=== PATIENT | male | born 1955 | race Caucasian/White ===

== ENCOUNTER 2020-04-19 12:43 | Emergency (ER) | payer BC ==
[~2020-04-19] VITALS: Ht 175.3 cm; Wt 90.7 kg
--- NOTE | 2020-04-19 12:50 | NUR ---
PT CALLED, IN BATHROOM
[2020-04-19 13:00] VITALS: BP 159/81
--- NOTE | 2020-04-19 13:04 | NUR ---
AMB TO BED 3
--- NOTE | 2020-04-19 13:14 | NUR ---
64 YO MALE CO ABD PAIN SINCE THIS AM. PT DENIES N/V, FEVER. MULIPLE BM THIS AM SMALL BUT EASY TO PASS, NO DIARRHEA. DID NOT TRY ANY MED FOR PAIN. HX- DENIES NKA
[2020-04-19 13:59] LABS: BASOPHILS # (AUTO) 0.1 K/uL (0.00-0.22); BASOPHILS % (AUTO) 1.3 % (0.0-2.0); EOSINOPHILS # (AUTO) 0.2 K/uL (0-0.4); EOSINOPHILS % (AUTO) 1.9 % (0.0-4.0); HEMATOCRIT 46.6 % (36-52); HEMOGLOBIN 15.3 g/dL (12.0-18.0); LYMPHOCYTES # (AUTO) 1.7 K/uL (2.0-11.5); LYMPHOCYTES % (AUTO) 16.8 % (20.5-51.1); MEAN CORPUSCULAR HEMOGLOBIN 31 pg (27-31); MEAN CORPUSCULAR HGB CONC 33 g/dL (33-37); MEAN CORPUSCULAR VOLUME 93.1 fL (80-94); MONOCYTES # (AUTO) 0.5 K/uL (0.8-1.0); MONOCYTES % (AUTO) 5.5 % (1.7-9.3); NEUTROPHILS # (AUTO) 7.4 K/uL (1.8-7.7); NEUTROPHILS % (AUTO) 74.5 % (42.2-75.2); PLATELET COUNT (AUTO) 279 K/uL (140-450); RED CELL DISTRIBUTION WIDTH 13.6 % (11.6-13.7)
[2020-04-19] MEDS ORDERED: DICYCLOMINE HCL LIQUID 20 MG, ALUMINUM HYD/MAG/SIMETHICONE 30 ML, LIDOCAINE VISCOUS 2% ... PO ONE ×3 (14:10)
[2020-04-19] MEDS ORDERED: KETOROLAC 30 MG/ML VIAL IVP ONE (14:10)
[2020-04-19] MEDS ORDERED: NACL 0.9% 1,000 ML IV ONE (14:10)
[2020-04-19 14:17] LABS: ALBUMIN 3.7 g/dL (3.4-5.0); ANION GAP 16.7 (8-16); CARBON DIOXIDE 22.4 mmol/L (21-32); CREATININE 0.9 mg/dL (0.6-1.3); POTASSIUM 4.1 mmol/L (3.5-5.1); TOTAL BILIRUBIN 0.5 mg/dL (0.0-1.0)
[2020-04-19] MEDS ORDERED: hydrOXYzine 50 MG/ML VIAL IM ONE (14:30)
[2020-04-19] MEDS ORDERED: LIDOCAINE VISCOUS 2% 20 ML UDC ONE (14:51)
[2020-04-19] MEDS ORDERED: DICYCLOMINE HCL LIQUID 10 MG/5 ML UDC ONE (14:51)
[2020-04-19] MEDS ORDERED: ALUMINUM HYD/MAG/SIMETHICONE 30 ML UDC ONE (14:51)
[2020-04-19 17:21] VITALS: BP 159/81
--- NOTE | 2020-04-19 17:21 | NUR ---
Patient discharged with v/s stable. Written and verbal after care instructions given and explained. Patient alert, oriented and verbalized understanding of instructions. Ambulatory with steady gait. All questions addressed prior to discharge. ID band removed. Patient advised to follow up with PMD. Rx of MYLANTA, OMEPRAZOLE AND NORCO given. Patient educated on indication of medication including possible reaction and side effects. Opportunity to ask questions provided and answered.
== END 2020-04-19 17:21 | disposition home or self-care (01) ==
LOC: MED 12:43
DX: R10.84 Generalized abdominal pain (principal)
CPT/HCPCS: 36415; 80053; 81002; 83690; 85025; 96361; 96372; 99283; J1885; J3410; J7030

== ENCOUNTER 2020-04-21 14:52 | Inpatient (IN) | payer BC, SELFPAY ==
[~2020-04-21] VITALS: Ht 175.3 cm; Wt 90.7 kg
[2020-04-21 14:56] VITALS: BP 143/90
[2020-04-21] MEDS ORDERED: NACL 0.9% 1,000 ML IV ONE (16:10)
[2020-04-21 16:14] LABS: BASOPHILS % (AUTO) 0.4 % (0.0-2.0); EOSINOPHILS # (AUTO) 0.1 K/uL (0-0.4); EOSINOPHILS % (AUTO) 0.8 % (0.0-4.0); HEMATOCRIT 46.2 % (36-52); HEMOGLOBIN 15.7 g/dL (12.0-18.0); LYMPHOCYTES # (AUTO) 1.6 K/uL (2.0-11.5); LYMPHOCYTES % (AUTO) 14.9 % (20.5-51.1); MEAN CORPUSCULAR HEMOGLOBIN 31 pg (27-31); MEAN CORPUSCULAR HGB CONC 34 g/dL (33-37); MEAN CORPUSCULAR VOLUME 91.7 fL (80-94); MONOCYTES # (AUTO) 0.7 K/uL (0.8-1.0); MONOCYTES % (AUTO) 6.9 % (1.7-9.3); PLATELET COUNT (AUTO) 281 K/uL (140-450); RED BLOOD CELL COUNT(AUTO) 5.04 MIL/uL (4.20-6.10); RED CELL DISTRIBUTION WIDTH 13.7 % (11.6-13.7); WHITE BLOOD COUNT (AUTO) 10.4 K/uL (4.8-10.8)
[2020-04-21] MEDS ORDERED: ONDANSETRON 4 MG/2 ML VIAL IVP ONE (16:25)
[2020-04-21] MEDS ORDERED: KETOROLAC 15 MG/ML VIAL IVP ONE (16:25)
[2020-04-21 16:43] LABS: ALBUMIN 3.8 g/dL (3.4-5.0); ANION GAP 18.2 (8-16); CARBON DIOXIDE 22.5 mmol/L (21-32); POTASSIUM 3.7 mmol/L (3.5-5.1); TOTAL BILIRUBIN 0.7 mg/dL (0.0-1.0)
[2020-04-21] MEDS ORDERED: DOCUSATE SODIUM 100 MG GELCAP PO PRN (17:20)
[2020-04-21] MEDS ORDERED: ACETAMINOPHEN 325 MG TAB PO PRN (17:20)
[2020-04-21] MEDS ORDERED: ZOLPIDEM 5 MG TAB PO PRN (17:20)
[2020-04-21] MEDS ORDERED: HYDROcodone/APAP 5/325 MG 1 TAB TAB PO PRN (17:20)
[2020-04-21 18:18] LABS: CHOL/HDL RATIO 4.6 (1-4.5); FREE T4 (FREE THYROXINE) 1.2 ng/dL (0.76-1.46); MAGNESIUM 2.2 mg/dL (1.8-2.4); PHOSPHORUS 2.6 mg/dL (2.5-4.9); THYROID STIMULATING HORMONE 1.17 uIU/mL (0.34-3.74)
[2020-04-21 18:45] LABS: PROTHROMBIN TIME 9.9 secs (10.8-13.4)
[2020-04-21 19:15] VITALS: BP 139/85
[2020-04-21] MEDS: DEXT 5% / NACL 0.45% 1,000 ML IV SCH (19:53)
[2020-04-21] MEDS: MORPHINE SULFATE 2 MG/ML SYR IVP PRN (19:54)
[2020-04-21] MEDS: ONDANSETRON 4 MG/2 ML VIAL IVP PRN (20:08)
[2020-04-22] VITALS: BP 145/82
[2020-04-22] MEDS ORDERED: PIPERACILLIN/TAZOBACTAM 3.375 GM VIAL IV ONE ×2 (00:59→06:04)
[2020-04-22] MEDS: PIPERACILLIN/TAZOBACTAM 3.375 GM in DEXTROSE 5% 50 ML IV SCH ×4 (01:24→18:35)
[2020-04-22] MEDS: metroNIDAZOLE 500 MG/NS PREMIX 100 ML IV SCH ×4 (01:24→18:58)
[2020-04-22] MEDS: DEXT 5% / NACL 0.45% 1,000 ML IV SCH ×3 (03:55→21:22)
[2020-04-22 07:17] LABS: CARBON DIOXIDE 21.8 mmol/L (21-32); POTASSIUM 3.8 mmol/L (3.5-5.1)
[2020-04-22 07:21] LABS: PHOSPHORUS 2.9 mg/dL (2.5-4.9)
[2020-04-22 07:23] LABS: BASOPHILS % (AUTO) 0.3 % (0.0-2.0); EOSINOPHILS # (AUTO) 0.1 K/uL (0-0.4); EOSINOPHILS % (AUTO) 0.8 % (0.0-4.0); HEMOGLOBIN 14.8 g/dL (12.0-18.0); LYMPHOCYTES # (AUTO) 1.3 K/uL (2.0-11.5); LYMPHOCYTES % (AUTO) 12.7 % (20.5-51.1); MEAN CORPUSCULAR HEMOGLOBIN 32 pg (27-31); MEAN CORPUSCULAR HGB CONC 34 g/dL (33-37); MEAN CORPUSCULAR VOLUME 91.6 fL (80-94); MONOCYTES # (AUTO) 0.9 K/uL (0.8-1.0); MONOCYTES % (AUTO) 9.1 % (1.7-9.3); NEUTROPHILS # (AUTO) 7.7 K/uL (1.8-7.7); NEUTROPHILS % (AUTO) 77.1 % (42.2-75.2); PLATELET COUNT (AUTO) 267 K/uL (140-450); RED BLOOD CELL COUNT(AUTO) 4.69 MIL/uL (4.20-6.10); RED CELL DISTRIBUTION WIDTH 13.7 % (11.6-13.7)
[2020-04-22 08:00] VITALS: BP 154/84
[2020-04-22] MEDS: HYDROmorphone 1 MG/ML AMP IM/IV PRN ×2 (10:11→21:08)
[2020-04-22 16:00] VITALS: BP 138/78
[2020-04-22] MEDS: LORazepam 2 MG/ML VIAL IM/IVP PRN (18:01)
[2020-04-22] MEDS: MORPHINE SULFATE 2 MG/ML SYR IVP PRN (18:34)
[2020-04-22] MEDS: ONDANSETRON 4 MG/2 ML VIAL IVP PRN (18:41)
[2020-04-23] VITALS: BP 115/63
[2020-04-23] MEDS: metroNIDAZOLE 500 MG/NS PREMIX 100 ML IV SCH ×4 (00:09→18:24)
[2020-04-23] MEDS: PIPERACILLIN/TAZOBACTAM 3.375 GM in DEXTROSE 5% 50 ML IV SCH ×4 (01:23→17:44)
[2020-04-23 01:31] LABS: APPEARANCE,URINE CLEAR (CLEAR); BILIRUBIN,URINE 2+ (NEGATIVE); BLOOD, URINE NEGATIVE (NEGATIVE); COLOR,URINE DARK YELLOW (YELLOW); LEUKOCYTE ESTERASE ,URINE NEGATIVE (NEGATIVE); NITRITE, URINE POSITIVE (NEGATIVE); PH,URINE 5.5 (5.0-9.0); UGLUCOSE NEGATIVE (NEGATIVE)
[2020-04-23] MEDS: DEXT 5% / NACL 0.45% 1,000 ML IV SCH ×2 (01:38→10:32)
[2020-04-23 03:01] LABS: BARBITURATE, URINE NEGATIVE ng/ml (NEG <=200); BENZODIAZEPINE, URINE POSITIVE ng/mL (NEG <=200); CANNABINOID, URINE POSITIVE ng/mL (NEG <=50); COCAINE, URINE POSITIVE ng/mL (NEG <=300); OPIATE, URINE POSITIVE ng/mL (NEG <=2000); PHENCYCLIDINE SCREEN,URINE NEGATIVE ng/mL (NEG <=25)
[2020-04-23 03:55] LABS: CALCIUM OXALATE CRYSTALS,UR 0-10 /HPF (None Seen); RBC,URINE NONE SEEN /HPF (0-5); WBC,URINE NONE SEEN /HPF (0-5)
[2020-04-23] MEDS: HYDROmorphone 1 MG/ML AMP IM/IV PRN (05:28)
[2020-04-23] MEDS: ONDANSETRON 4 MG/2 ML VIAL IVP PRN (05:35)
[2020-04-23 07:12] LABS: BASOPHILS % (AUTO) 0.3 % (0.0-2.0); EOSINOPHILS # (AUTO) 0.1 K/uL (0-0.4); EOSINOPHILS % (AUTO) 1.3 % (0.0-4.0); HEMATOCRIT 42.9 % (36-52); HEMOGLOBIN 14.6 g/dL (12.0-18.0); LYMPHOCYTES % (AUTO) 14.9 % (20.5-51.1); MEAN CORPUSCULAR HEMOGLOBIN 31 pg (27-31); MEAN CORPUSCULAR HGB CONC 34 g/dL (33-37); MEAN CORPUSCULAR VOLUME 92.2 fL (80-94); MONOCYTES % (AUTO) 14.7 % (1.7-9.3); NEUTROPHILS # (AUTO) 4.6 K/uL (1.8-7.7); NEUTROPHILS % (AUTO) 68.8 % (42.2-75.2); PLATELET COUNT (AUTO) 251 K/uL (140-450); RED BLOOD CELL COUNT(AUTO) 4.65 MIL/uL (4.20-6.10); RED CELL DISTRIBUTION WIDTH 13.9 % (11.6-13.7); WHITE BLOOD COUNT (AUTO) 6.7 K/uL (4.8-10.8)
[2020-04-23 07:23] LABS: ANION GAP 9.9 (8-16); CARBON DIOXIDE 24.7 mmol/L (21-32); POTASSIUM 3.6 mmol/L (3.5-5.1)
[2020-04-23 07:32] LABS: PHOSPHORUS 3.1 mg/dL (2.5-4.9)
[2020-04-23 08:00] VITALS: BP 144/72
[2020-04-23 16:00] VITALS: BP 122/60
[2020-04-24] VITALS: BP 123/65
[2020-04-24] MEDS: PIPERACILLIN/TAZOBACTAM 3.375 GM in DEXTROSE 5% 50 ML IV SCH ×5 (00:30→23:46)
[2020-04-24] MEDS: metroNIDAZOLE 500 MG/NS PREMIX 100 ML IV SCH ×5 (01:00→23:46)
[2020-04-24] MEDS: DEXT 5% / NACL 0.45% 1,000 ML IV SCH ×2 (01:38→16:34)
[2020-04-24 06:42] LABS: BASOPHILS % (AUTO) 0.6 % (0.0-2.0); EOSINOPHILS # (AUTO) 0.1 K/uL (0-0.4); EOSINOPHILS % (AUTO) 1.7 % (0.0-4.0); HEMATOCRIT 41.1 % (36-52); LYMPHOCYTES # (AUTO) 1.3 K/uL (2.0-11.5); LYMPHOCYTES % (AUTO) 20.6 % (20.5-51.1); MEAN CORPUSCULAR HEMOGLOBIN 31 pg (27-31); MEAN CORPUSCULAR HGB CONC 34 g/dL (33-37); MEAN CORPUSCULAR VOLUME 91.9 fL (80-94); MONOCYTES # (AUTO) 0.6 K/uL (0.8-1.0); NEUTROPHILS # (AUTO) 4.3 K/uL (1.8-7.7); NEUTROPHILS % (AUTO) 67.1 % (42.2-75.2); PLATELET COUNT (AUTO) 253 K/uL (140-450); RED BLOOD CELL COUNT(AUTO) 4.47 MIL/uL (4.20-6.10); RED CELL DISTRIBUTION WIDTH 13.6 % (11.6-13.7); WHITE BLOOD COUNT (AUTO) 6.4 K/uL (4.8-10.8)
[2020-04-24 07:04] LABS: ANION GAP 13.9 (8-16); CARBON DIOXIDE 23.6 mmol/L (21-32); CREATININE 1.1 mg/dL (0.6-1.3); POTASSIUM 3.5 mmol/L (3.5-5.1)
[2020-04-24 07:10] LABS: MAGNESIUM 1.8 mg/dL (1.8-2.4); PHOSPHORUS 2.5 mg/dL (2.5-4.9)
[2020-04-24 08:00] VITALS: BP 135/64
[2020-04-24] MEDS: HYDROmorphone 1 MG/ML AMP IM/IV PRN ×2 (09:56→16:34)
[2020-04-24] MEDS: LORazepam 2 MG/ML VIAL IM/IVP PRN (10:55)
[2020-04-24 16:00] VITALS: BP 138/67
[2020-04-25] VITALS: BP 127/73
[2020-04-25] MEDS: DEXT 5% / NACL 0.45% 1,000 ML IV SCH ×4 (01:55→21:36)
[2020-04-25] MEDS: PIPERACILLIN/TAZOBACTAM 3.375 GM in DEXTROSE 5% 50 ML IV SCH ×3 (05:08→18:18)
[2020-04-25] MEDS: metroNIDAZOLE 500 MG/NS PREMIX 100 ML IV SCH ×3 (05:09→17:27)
[2020-04-25 06:24] LABS: BASOPHILS % (AUTO) 0.5 % (0.0-2.0); EOSINOPHILS # (AUTO) 0.2 K/uL (0-0.4); EOSINOPHILS % (AUTO) 2.2 % (0.0-4.0); HEMATOCRIT 42.2 % (36-52); HEMOGLOBIN 14.2 g/dL (12.0-18.0); LYMPHOCYTES # (AUTO) 1.6 K/uL (2.0-11.5); LYMPHOCYTES % (AUTO) 21.1 % (20.5-51.1); MEAN CORPUSCULAR HEMOGLOBIN 31 pg (27-31); MEAN CORPUSCULAR HGB CONC 34 g/dL (33-37); MEAN CORPUSCULAR VOLUME 92.5 fL (80-94); MONOCYTES # (AUTO) 0.6 K/uL (0.8-1.0); MONOCYTES % (AUTO) 8.6 % (1.7-9.3); NEUTROPHILS # (AUTO) 5.1 K/uL (1.8-7.7); NEUTROPHILS % (AUTO) 67.6 % (42.2-75.2); PLATELET COUNT (AUTO) 257 K/uL (140-450); RED BLOOD CELL COUNT(AUTO) 4.56 MIL/uL (4.20-6.10); RED CELL DISTRIBUTION WIDTH 13.5 % (11.6-13.7); WHITE BLOOD COUNT (AUTO) 7.5 K/uL (4.8-10.8)
[2020-04-25 07:08] LABS: ANION GAP 11.7 (8-16); CARBON DIOXIDE 25.8 mmol/L (21-32); CREATININE 1.2 mg/dL (0.6-1.3); POTASSIUM 3.5 mmol/L (3.5-5.1)
[2020-04-25 08:00] VITALS: BP 132/65
[2020-04-25] MEDS ORDERED: SIMETHICONE 80 MG TAB.CHEW PO PRN (12:20)
[2020-04-25] MEDS: HYDROmorphone 1 MG/ML AMP IM/IV PRN (12:23)
[2020-04-25 16:00] VITALS: BP 128/70
[2020-04-26] VITALS: BP 111/63
[2020-04-26] MEDS: PIPERACILLIN/TAZOBACTAM 3.375 GM in DEXTROSE 5% 50 ML IV SCH ×2 (00:51→05:55)
[2020-04-26] MEDS: metroNIDAZOLE 500 MG/NS PREMIX 100 ML IV SCH ×2 (01:38→06:36)
[2020-04-26 08:00] VITALS: BP 166/65
[2020-04-26] MEDS: DEXT 5% / NACL 0.45% 1,000 ML IV SCH (08:31)
[2020-04-26] MEDS ORDERED: SIME80TA22 PO (11:32)
[2020-04-26] MEDS ORDERED: METR250T2 PO (11:32)
[2020-04-26 11:42] VITALS: BP 148/68
== END 2020-04-26 12:49 | disposition home or self-care (01) | DRG 389 ==
LOC: MED 14:52 → MMU 17:23 → MTU 18:13
PROVIDERS: ADMIT Family Medicine; ATTEND Family Medicine
PROC: 0D9670Z Drainage of Stomach with Drainage Device, Via Natural or Artificial Opening (ICD-10-PCS; principal; 2020-04-21)
DX: K56.600 Partial intestinal obstruction, unspecified as to cause (principal); E87.1 Hypo-osmolality and hyponatremia; F19.10 Other psychoactive substance abuse, uncomplicated; I10 Essential (primary) hypertension; M47.816 Spondylosis without myelopathy or radiculopathy, lumbar region; R91.1 Solitary pulmonary nodule; Z20.828 Contact with and (suspected) exposure to other viral communicable diseases
CPT/HCPCS: 36415; 71045; 74018; 74250; 80048; 80053; 80305; 81001; 82150; 83036; 83605; 83690; 83735; 83880; 84100; 84439; 84443; 84484; 85025; 85610; 85730; 86886; 86900; 86901; 87081; 96361; 96374; 96375; 97110; 97116; 97161-GP; 97530; 99285; J1170; J1885; J2060; J2270; J2405; J2543; J3490; J7060; Q0092